=== PATIENT | male | born 1975 | race Two or more races ===

== ENCOUNTER → 2019-08-06 | Day surgery (SDC) | payer OTHER | END | disposition home or self-care (01) | LOC: ADM 08-03 09:45 → CIR.AMB 09:45 | DX: S46.122A Laceration of muscle, fascia and tendon of long head of biceps, left arm, initial encounter (principal) ==

== ENCOUNTER 2024-01-23 09:55 | Day surgery (SDC) | payer OTHER ==
[2024-01-15 11:58] LABS: URINE APPEARANCE Clear; URINE BILIRRUBIN Negative (NEGATIVE); URINE BLOOD Negative; URINE COLOR Yellow; URINE GLUCOSE Negative (NEGATIVE); URINE LEUKOCYTE Negative; URINE NITRATE Negative; URINE PROTEIN Negative (NEGATIVE); URINE UROBILINOGEN 0.2 E.U./dl
[2024-01-15 11:59] LABS: URINE RBC 2.1 uL (0.0-20.8)
[2024-01-15 12:05] LABS: URINE EPITHELIAL CELLS 0.3 uL (0.0-38.8); URINE WBC 1.3 uL (0.0-23.2)
[2024-01-15 12:07] LABS: HEMATOCRIT 45.8 % (39.0-48.0); HEMOGLOBIN 15.6 g/dL (13-16.00); MEAN CELL VOLUME 95.3 fL (80.0-100.00); MEAN CORPUSCULAR HEMOGLOBIN 32.5 pg (27.00-32.0); MEAN CORPUSCULAR HGB CONC 34.1 g/dl (32.0-36.0); PLATELET COUNT 149 K/uL (150-450); RED CELL DISTRIBUTION WIDTH 14.3 % (11.5-14.5)
[2024-01-15 12:17] LABS: INR 0.97; PARTIAL THROMBOPLASTIN TIME 27.2 SECONDS (22.0-34.0); PROTHROMBIN TIME 10.2 SECONDS (9.0-11.5)
[2024-01-15 12:41] LABS: ALBUMIN 3.8 gm/dL (3.4-5.0); BILIRUBIN TOTAL 0.94 mg/dL (0.3-1.2); CALCIUM 9.7 mg/dL (8.5-10.1); GFR 79.09; POTASSIUM 4.77 mEq/L (3.5-5.1); TOTAL PROTEIN 6.8 gm/dL (6.4-8.2)
[2024-01-23] MEDS ORDERED: LIDOCAINE HCL 1% 20ML VIAL IJ ONE (11:59)
[2024-01-23] MEDS ORDERED: KETOROLAC TROMETHAMINE 30 MG VIAL ONE (11:59)
[2024-01-23] MEDS ORDERED: CEFAZOLIN SODIUM 1,000 MG VIAL ONE (11:59)
[2024-01-23] MEDS ORDERED: CEFAZOLIN SODIUM 1,000 MG VIAL IV ONE (12:30)
[2024-01-23] MEDS ORDERED: KETOROLAC TROMETHAMINE 30 MG VIAL IJ ONE (12:30)
[2024-01-23] MEDS ORDERED: BUPIVACAINE HCL 30 ML VIAL IJ ONE (12:30)
[2024-01-23] MEDS ORDERED: LIDOCAINE HCL 1% 10ML VIAL IJ ONE (12:30)
[2024-01-23] MEDS ORDERED: KETOROLAC TROMETHAMINE 30 MG VIAL IV ONE (12:30)
[2024-01-23] MEDS ORDERED: SUGAMMADEX SODIUM 200 MG/2 ML VIAL IV ONE ×2 (13:42→13:45)
== END 2024-01-23 16:40 | disposition home or self-care (01) ==
LOC: CIR.AMB 09:55
PROVIDERS: ATTEND Orthopaedic Surgery
DX: S46.322A Laceration of muscle, fascia and tendon of triceps, left arm, initial encounter (principal); M77.9 Enthesopathy, unspecified